=== PATIENT | male | born 1985 | race Caucasian/White ===

== ENCOUNTER 2018-11-05 12:53 | Emergency (ER) | payer SELFPAY ==
[~2018-11-05] VITALS: Ht 175.3 cm; Wt 70.0 kg
[2018-11-05 13:32] VITALS: Ht 175.3 cm; Wt 70.0 kg
--- NOTE | 2018-11-05 13:47 | EN ---
Date/Time of Note Date/Time of Note DATE: 11/05/18 TIME: 13:46 ER Progress Note MSE in ED [age]-old male with right wrist pain and swelling after repetitive motion. Radiologic studies initiated via provider in triage. BRITTANY STOREY MD November 05, 2018 13:47
[2018-11-05] MEDS ORDERED: ONDANSETRON (ODT) 4 MG TAB ODT STA (15:08)
[2018-11-05] MEDS ORDERED: SULF1TAB31 PO (15:13)
[2018-11-05] MEDS ORDERED: CEPH-443 PO (15:13)
[2018-11-05] MEDS ORDERED: NAPR-985 PO (15:13)
--- NOTE | 2018-11-05 15:18 | ERD ---
ER Documentation Chief Complaint Chief Complaint RIGHT WRIST PAIN AFTER WORK X 3 DAYS AGO--NO SWELLING/BRUISING HPI 33-year-old male presenting with pain to the right wrist. Patient states this started 3 days ago after working. 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 He denies any acute traumatic injury. Denies numbness or tingling. [id number]. Denies any medical problems. NKDA. Surgical history denies. Social history denies ROS All systems reviewed and are negative except as per history of present illness. Medications Home Meds Active Scripts Naproxen* (Naprosyn*) 500 Mg Tablet, 500 MG PO BID PRN for PAIN AND/OR INFLAMMATION, #30 TAB Prov:ZULEMA MENDEZ PA-C 11/05/18 Sulfamethoxazole/Trimethoprim* (Bactrim Ds* Tablet) 1 Each Tablet, 1 TAB PO BID, #14 TAB Prov:ZULEMA MENDEZ PA-C 11/05/18 Cephalexin* (Keflex*) 500 Mg Capsule, 500 MG PO QID for 7 Days, CAP Prov:ZULEMA MENDEZ PA-C 11/05/18 Allergies Allergies: Coded Allergies: No Known Allergy (Unverified , 11/05/18) PMhx/Soc Medical and Surgical Hx: pt denies Medical Hx, pt denies Surgical Hx History of Surgery: No Anesthesia Reaction: No Hx Neurological Disorder: No Hx Respiratory Disorders: No Hx Cardiac Disorders: No Hx Psychiatric Problems: No Hx Miscellaneous Medical Probl: No Hx Alcohol Use: No Hx Substance Use: No Hx Tobacco Use: Yes (occasionally.) Smoking Status: Current some day smoker FmHx Family History: No diabetes, No coronary disease, No other Physical Exam Vitals Vital Signs Date Temp Pulse Resp B/P (MAP) Pulse Ox O2 O2 Flow FiO2 Time Delivery Rate 11/05/18 97.7 90 18 100 13:32 Physical Exam GENERAL: The patient is well-appearing, well-nourished, in no acute distress CHEST: Clear to auscultation bilaterally. There are no rales, wheezes or rhonchi. HEART: Regular rate and rhythm. No murmurs, clicks, rubs or gallops. No S3 or S4. EXTREMITIES: Tender to palpation over the right wrist with questionable erythema and swelling. No lymphatic streaking. No pustules. NEUROLOGIC: Alert and oriented. Cranial nerves II through XII intact. Motor strength in all 4 extremities with 5 out of 5 strength. Sensation grossly intact. Normal speech and gait. SKIN: There is no apparent rash or petechiae. The skin is warm and dry. Results 24 hrs Current Medications Medications Dose Sig/Los Start Time Status Last (Trade) Ordered Route PRN Stop Time Admin Dose Reason Admin Ceftriaxone 1 gm ONCE ONCE 11/05/18 Sodium IM 15:30 (Rocephin) 11/05/18 15:31 Lidocaine 5 ml ONCE ONCE 11/05/18 (Xylocaine INJ 15:30 1% (Mpf)) 11/05/18 15:31 1 tab ONCE ONCE 11/05/18 Acetaminophen PO 15:30 / 11/05/18 15:31 Hydrocodone Bitart ([place] (5/325)) Ondansetron 4 mg ONCE STAT 11/05/18 DC HCl (Zofran ODT 15:08 Odt) 11/05/18 15:09 Procedures/MDM DIAGNOSTIC IMAGING REPORT Patient: BALTA DIMAS : 1985 Age: 33 Sex: M MR #: [id number] DOS: 11/05/18 1345 Ordering MD: BRITTANY STOREY MD Location: [facility] Room/Bed: PROCEDURE: Right wrist x-ray CLINICAL INDICATION: pain TECHNIQUE: AP, lateral and oblique views of the wrist were obtained. COMPARISON: None FINDINGS: There is normal mineralization. No acute fracture or dislocation is seen. There are no significant degenerative changes. There is no significant soft tissue swelling. RPTAT: AA IMPRESSION: Normal x-ray of the right wrist. ER Course: Rocephin given in ED. Ibuprofen given in ED. Velcro Splint applied in ED. Neuro intact pre and post splinting MDM: 33-year-old male presenting with pain to the right wrist. Patient has questionable findings of erythema and swelling. I have low suspicion for lymphatic infection. I have low suspicion for tendon or ligament rupture. I have considered septic joint however patient has normal vitals. I have checked patient's cures report as there was some concern for drug-seeking activity the patient's cures report was negative. She is discharged with supportive medications. Patient is told if symptoms change or worsen to return immediately to the ER. All questions answered at discharge Departure Diagnosis: Primary Impression: Wrist pain Condition: Stable Patient Instructions: Contusion, Upper Extremity Referrals: [facility] YOU HAVE RECEIVED A MEDICAL SCREENING EXAM AND THE RESULTS INDICATE THAT YOU DO NOT HAVE A CONDITION THAT REQUIRES URGENT TREATMENT IN THE EMERGENCY DEPARTMENT. FURTHER EVALUATION AND TREATMENT OF YOUR CONDITION CAN WAIT UNTIL YOU ARE SEEN IN YOUR DOCTORS OFFICE WITHIN THE NEXT 1-2 DAYS. IT IS YOUR RESPONSIBILITY TO MAKE AN APPOINTMENT FOR FOLOW-UP CARE. IF YOU HAVE A PRIMARY DOCTOR --you should call your primary doctor and schedule an appointment IF YOU DO NOT HAVE A PRIMARY DOCTOR YOU CAN CALL OUR PHYSICIAN REFERRAL HOTLINE AT IF YOU CAN NOT AFFORD TO SEE A PHYSICIAN YOU CAN CHOSE FROM THE FOLLOWING [facility] [address] [facility]. [facility] [address] [facility] [facility] [address] [facility] [address] [facility]. [facility] [address]. [facility] [address] Additional Instructions: FOLLOW UP WITH YOUR PRIMARY CARE PHYSICIAN TOMORROW.Return to this facility if you are not improving as expected. ZULEMA MENDEZ PA-C November 05, 2018 15:18
[2018-11-05] MEDS ORDERED: HYDROCODONE/APAP (5/325) TAB PO ONE (15:30)
[2018-11-05] MEDS ORDERED: CEFTRIAXONE 1 GM INJ IM ONE (15:30)
[2018-11-05] MEDS ORDERED: LIDOCAINE 1% (MPF) 5 ML VIAL INJ ONE (15:30)
[2018-11-05 15:47] VITALS: BP 131/84; PULSE 87; RESP 18
== END 2018-11-05 16:20 | disposition home or self-care (01) ==
LOC: FTE 12:53
DX: M25.531 Pain in right wrist (principal); F17.210 Nicotine dependence, cigarettes, uncomplicated
CPT/HCPCS: 29125; 73110; 96372; 99284; J0696